=== PATIENT | female | born 1995 | race Caucasian/White ===

== ENCOUNTER 2019-07-25 03:09 | Observation (INO) ==
[2019-07-25] MEDS ORDERED: MoRPHine SULFATE 2 MG/ML CARP IV PRN ×3 (03:27→08:48)
[2019-07-25] MEDS ORDERED: ONDANSETRON INJ 2 MG/ML 2 ML VIAL IV STA (03:27)
[2019-07-25] MEDS ORDERED: SODIUM CHLORIDE 0.9% 1000ML 1,000 ML IV SCH (03:30)
[2019-07-25 04:07] LABS: Hematocrit (blood only) 36.4 % (37-47); Hemoglobin 12.8 g/dL (12.0-16.0); Mean Corpuscular Hemoglobin 30.7 pg (25-34); Mean Corpuscular Hgb Conc 35.2 g/dL (32-36); Mean Corpuscular Volume 87.3 fL (80-100); Mean Platelet Volume 9.7 fL (7.4-10.4); Platelet Count 246 K/uL (130-400); RDW Standard Deviation 41.8 fL (36.4-46.3); Red Blood Count 4.17 M/uL (4.2-5.4); White Blood Count 10.32 K/uL (4.8-10.8)
[2019-07-25 04:35] LABS: Albumin Level 3.9 gm/dl (3.4-5.0); BUN Creatinine Ratio 19.8 (10-20); Calcium 8.6 mg/dl (8.5-10.1); Creatinine Clr Calc Pharmacy 102.1 ml/min; Est GFR (African American) 137.8; Est GFR (Non-African American) 118.9; Magnesium 1.9 mg/dl (1.8-2.4); Potassium 3.4 mmol/L (3.5-5.1)
[2019-07-25 04:37] LABS: Albumin Globulin Ratio 1.1 (0.9-2); Bilirubin,Total 0.6 mg/dl (0.2-1); Globulin 3.7 gm/dl (2.5-4.0); Total Protein 7.6 gm/dl (6.4-8.2)
[2019-07-25 04:41] LABS: Appearance Urine Cloudy (Clear); Bacteria Urine Automated 1+ (Negative); Bilirubin Urine Negative (Negative); Blood Urine Negative (Negative); Color Urine Dark Yellow; Epithelial Cell Urine Auto >30 /lpf (0-5); Glucose Urine UA Negative (Negative); Ketones Urine 1+ (Negative); Leukocyte Esterase Urine Negative (Negative); Nitrite Urine Negative (Negative); Protein Urine Trace (Negative); Specific Gravity Urine 1.034 (1.000-1.030); Urobilinogen Urine Negative (Negative); pH Urine 5.5 (4.5-7.5)
[2019-07-25 04:57] LABS: Cast Urine Automated 0 /lpf (0-5); Mucus Urine Present (None Prsent)
[2019-07-25 04:58] LABS: Calcium Oxalate Crystals Urine Present (None Prsent)
[2019-07-25 05:25] LABS: Basophils # (auto) 0.01 K/uL (0-0.2); Basophils % (auto) 0.1 %; Eosinophils # (auto) 0.07 K/uL (0-0.5); Eosinophils % (auto) 0.7 %; Immature Granulocytes # (auto) 0.02 K/uL (0.00-0.02); Immature Granulocytes % (auto) 0.2 %; Lymphocytes # (auto) 1.06 K/uL (1.2-3.4); Lymphocytes % (auto) 10.3 %; Monocytes # (auto) 0.57 K/uL (0.11-0.59); Monocytes % (auto) 5.5 %; Neutrophils # (auto) 8.59 K/uL (1.4-6.5); Neutrophils % (auto) 83.2 %
[2019-07-25] MEDS ORDERED: IOVERSOL 100ml IV PRN (05:57)
[2019-07-25] MEDS ORDERED: PIPERACILLIN/TAZOBACTAM 4.5 GM/120 ML BAG IV ONE (07:02)
[2019-07-25] MEDS ORDERED: PIPERACILL/TAZOBAC CONSULT ACTIVE PRN ×3 (07:02→14:48)
[2019-07-25] MEDS ORDERED: DESMOPRESSIN ACETATE 19 MCG in SODIUM CHLORIDE 0.9% 50 ML IV ONE (07:11)
--- NOTE | 2019-07-25 07:12 | Ultrasound Report ---
ABDOMINAL ULTRASOUND, RIGHT UPPER QUADRANT HISTORY: Right upper quadrant abdominal pain.. COMPARISON: None. FINDINGS: Pancreas: The pancreas demonstrates a normal echotexture. Liver: Unremarkable. Gallbladder: No gallbladder wall thickening. No gallstones. CBD: 3.5 mm. Right kidney: No hydronephrosis. IMPRESSION: No significant abnormality identified within the right upper quadrant. Electronically signed by: Wolf Fernando M.D. 07/25/2019 7:11 AM
--- NOTE | 2019-07-25 07:19 | CT Scan Report ---
ABDOMEN AND PELVIS CT WITH IV AND ORAL CONTRAST CT DOSE: 300.00 mGy.cm HISTORY: Upper abdominal pain. Right lower quadrant pain. TECHNIQUE: Multiaxial CT images of the abdomen and pelvis were performed following the use of intrave nous and oral contrast. A dose lowering technique was utilized adhering to the principles of ALARA. COMPARISON STUDY: None. FINDINGS: The lung bases are clear. No pneumoperitoneum. No pneumatosis. No fractures within the visu alized osseous structures. The liver, spleen, gallbladder, pancreas, adrenal glands, and kidneys are unremarkable. No retroperitoneal lymphadenopathy. The bladder, uterus, and ovaries are unremarkable. Trace pelvic free fluid. No bowel obstruction. The appendix does not fill with contrast and is dilate d and fluid-filled measuring up to 11 mm in diameter. Findings are consistent with acute appendicitis . No perforation or abscess at this time. IMPRESSION: Acute appendicitis. Electronically signed by: Wolf Fernando M.D. 07/25/2019 7:18 AM
--- NOTE | 2019-07-25 07:21 | Ultrasound Report ---
US pelvic limited CLINICAL HISTORY: Lower abdominal pain. Pelvic pain. COMPARISON STUDY: No previous studies for comparison. FINDINGS: Uterus measures 6 x 2.2 x 3.4 cm. Endometrium measures 2 mm in thickness. There is a small to moderate amount complex fluid within the pelvis. The ovaries are normal. Color flow is identified within each ovary. The right ovary measures 3.6 x 1.6 x 1.7 cm and the left ovary measures 2.2 x 1.3 x 1.8 cm. IMPRESSION: 1. Normal sonographic appearance of the uterus and ovaries. 2. Small to moderate amount of complex fluid within the pelvis. Electronically signed by: Anshul Razo M.D. 07/25/2019 7:19 AM
--- NOTE | 2019-07-25 07:24 | History & Physical Report ---
Date of Service July 25, 2019 Assessment & Plan (1) Acute appendicitis: for laparoscopic appendectomy, possible open operation admit, IV atbx, meds Acute appendicitis type: unspecified acute appendicitis type Qualified Code(s): K35.80 - Unspecified acute appendicitis History of Present Illness Primary Care Provider: ROMERO Wilson pt adm through ER with acute appendicitis h/o Von Willebrands dis Allergies Allergy/AdvReac Type Severity Reaction Status Date / Time lactose Allergy Mild Gastrointestinal Verified 07/25/19 03:42 Upset Home Medications Home Medications Medication Instructions Recorded Confirmed Type Control Pills 1 tab PO DAILY 07/25/19 07/25/19 History lactase [Lactaid] 3,000 unit PO AC PRN 07/25/19 07/25/19 History omeprazole 40 mg PO BID PRN 07/25/19 07/25/19 History Past Med/Surg History Medical History Von Willebrand disease Social History Feels Safe at Home: Yes Smoking Status: Never smoker Review of Systems All systems reviewed & are unremarkable except as noted in HPI & below Physical Exam Physical Exam: abd- deep RLQ pain Constitutional: well developed and well nourished; no acute distress Eyes: + anicteric sclerae Respiratory: normal respiratory effort; no respiratory distress Cardiovascular: Rate/Rhythm: regular rate Gastrointestinal (Abdomen): Percussion/Palpation: abdomen soft Musculoskeletal: Gait: normal gait Skin: no rashes, warm and dry Neurologic: awake Psychiatric: Orientation: alert Results & Data Vital Signs (Past 12 Hours) Vital Signs Temp Pulse Pulse Resp BP BP Pulse Ox 07/25/19 06:22 87 18 101/60 99 07/25/19 05:12 85 16 105/70 100 07/25/19 03:12 36.8 C 114 H 18 107/[address] scan
--- NOTE | 2019-07-25 07:28 | Ultrasound Report ---
US appendix CLINICAL HISTORY: 23 years-old Female presenting with right side abd pain. TECHNIQUE: Real-time grayscale and limited color Doppler ultrasound imaging of the right lower quadra nt was performed to evaluate the appendix. COMPARISON: None. FINDINGS: Appendix not visualized. Trace free fluid in the right lower quadrant. No hyperechogenic fat. No chantal onal lymphadenopathy IMPRESSION: 1. Appendix not visualized. This does not exclude the diagnosis of appendicitis. 2. Trace free fluid in the right lower quadrant. This could suggest regional inflammatory change. Electronically signed by: Charlie Medel M.D. 07/25/2019 7:27 AM
--- NOTE | 2019-07-25 07:41 | Emergency Department Note ---
History of Present Illness General Chief complaint: Abdominal Pain Stated complaint: ABD. PAIN, VOMITING & DIARRHEA Time Seen by Provider: 07/25/19 03:16 History of Present Illness Maximum Pain Intensity: 7 This is a 23-year-old female presenting to the emergency department with generalized abdominal pain over the past 8-10 hours. 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 She began having some generalized pain that slowly migrated to the right side of her abdomen. She does not have a history of abdominal surgery and considers herself usually healthy. She does report a history of von Willebrand's disease. The patient denies chance of . Of note, she is getting in 4 days. The patient has not had fevers or chills. She is nauseated and did have 1 or 2 episodes of emesis prior to ER arrival. The patient rates her current discomfort a 7/10 that is radiating up and down the right side of her abdomen. Home Medications Home Medications Medication Instructions Recorded Confirmed Type Control Pills 1 tab PO DAILY 07/25/19 07/25/19 History lactase [Lactaid] 3,000 unit PO AC PRN 07/25/19 07/25/19 History omeprazole 40 mg PO BID PRN 07/25/19 07/25/19 History Allergies Allergy/AdvReac Type Severity Reaction Status Date / Time lactose Allergy Mild Gastrointestinal Verified 07/25/19 03:42 Upset Past Med/Surg History Medical History Von Willebrand disease Surgical History H/O arthroscopy of knee Social History Preferred Language: Upper Sorbian Communication Ability: Effective Beliefs That Will Affect Care: None Current Living Situation: Significant Other Other Information That Helps Us Care for You: No Feels Safe at Home: Yes Safety Concerns: Feels Safe At This Time Smoking Status: Never smoker Hx Alcohol Use: Yes Alcohol type: wine Hx Substance Use: No Review of Systems A total of 10 systems reviewed and were otherwise negative Physical Exam Vital Signs Vital Signs - 24 hr 07/25/19 03:12 07/25/19 05:12 07/25/19 06:22 Temperature 36.8 C Temperature Source Oral Sepsis Recent Fever Within 48 Hours No Sepsis Action Taken by Nursing No Action Required Pulse Rate 114 H Pulse Rate [Finger] 85 87 Respiratory Rate 18 16 18 Respiratory Effort / Characteristics Non-Labored Respiratory Depth Normal Blood Pressure 107/75 Blood Pressure [Left Arm] 105/70 101/60 Blood Pressure Mean 85 Blood Pressure Mean [Left Arm] 81 73 Pulse Oximetry 100 100 99 Oxygen Delivery Method Room Air Room Air Room Air 07/25/19 07:57 Temperature Temperature Source Sepsis Recent Fever Within 48 Hours Sepsis Action Taken by Nursing Pulse Rate Pulse Rate [Finger] 76 Respiratory Rate 16 Respiratory Effort / Characteristics Respiratory Depth Blood Pressure Blood Pressure [Left Arm] 108/76 Blood Pressure Mean Blood Pressure Mean [Left Arm] 86 Pulse Oximetry 99 Oxygen Delivery Method Room Air VITALS: Vitals are noted on the nurse's note and reviewed by myself. Vital signs stable. GENERAL: Well-developed, well-nourished, white female, who is mildly uncomfortable but not toxic.. HEAD: Normocephalic atraumatic. EARS: External ear normal. External auditory canals clear, tympanic membranes pearly gonzalez without erythema or effusion bilaterally. EYES: Pupils equal round and reactive to light and accommodation. Conjunctivae without injection, sclerae without icterus. Extraocular movements intact. NOSE: Patent, turbinates without inflammation or discharge. MOUTH: Mucous membranes moist. Tonsils are not enlarged. Pharynx without erythema, blood, or exudate. Uvula midline. Airway patent. NECK: Supple without nuchal rigidity. No lymphadenopathy. No thyromegaly. Cervical spine is nontender. HEART: Regular rate and rhythm without murmurs gallops or rubs. LUNGS: Clear to auscultation bilaterally without wheezes, rales or rhonchi. No retractions or accessory muscle use. ABDOMEN: Positive normal bowel sounds x 4. Soft with mild diffuse tenderness on palpation with increased tenderness best appreciated in the suprapubic and right lower quadrants. No rebound or guarding. Percussion along the right side CVA does cause referred tenderness in the right lower quadrant. Course Administered Medications Sodium Chloride (Nss 1000ml) 1,000 mls @ 80 mls/hr IV .[id number] [facility] Stop: 08/24/19 07:29 Last Infusion: 07/25/19 16:09 Dose: 80 mls/hr Documented by: [id number] Infusion: 07/25/19 10:52 Dose: 0 mls/hr Documented by: [id number] Admin: 07/25/19 08:59 Dose: 80 mls/hr Documented by: [id number] Piperacillin Sod/Tazobactam (Sod 3.375 gm/ Dextrose) 115 mls @ 28.75 mls/hr IV Q8H [facility] Stop: 08/04/19 11:59 Last Admin: 07/25/19 19:57 Dose: 28.8 mls/hr Documented by: [id number] Admin: 07/25/19 14:58 Dose: Not Given Documented by: [id number] Promethazine HCl 25 mg/ Sodium (Chloride) 51 mls @ 204 mls/hr IV Q6H PRN PRN Reason: Nausea And Vomiting Stop: 08/24/19 08:47 Last Infusion: 07/25/19 17:07 Dose: 0 mls/hr Documented by: [id number] Admin: 07/25/19 16:39 Dose: 204 mls/hr Documented by: [id number] Miscellaneous (Order Awaiting Action) 1 ea N/A QS [facility] Stop: 08/24/19 15:59 Last Admin: 07/25/19 16:57 Dose: Not Given Documented by: [id number] Ondansetron HCl (Zofran) 4 mg IV [id number] PRN PRN Reason: Nausea Stop: 08/24/19 08:47 Last Admin: 07/25/19 08:59 Dose: 4 mg Documented by: [id number] Discontinued Medications Bupivacaine HCl (Marcaine 0.5% Mpf) Confirm Administered Dose 30 ml .ROUTE .STK- MED ONE Stop: 07/25/19 11:53 Last Admin: 07/25/19 12:56 Dose: 30 ml Documented by: [id number] Bupivacaine HCl/Epinephrine Bitart (Sensorcaine/Epinephrine 0.5% Mpf 1:200,000) Confirm Administered Dose 30 ml .ROUTE .STK-MED ONE Stop: 07/25/19 09:14 Last Admin: 07/25/19 13:37 Dose: Not Given Documented by: [id number] Fentanyl Citrate (Fentanyl Citrate) 25 mcg IV Q5M PRN PRN Reason: PACU Use Only-Pain Stop: 07/25/19 15:47 Last Admin: 07/25/19 14:07 Dose: 25 mcg Documented by: [id number] Sodium Chloride (Nss 1000ml) 1,000 mls @ 999 mls/hr IV .Q1H1M [facility] Stop: 07/25/19 04:30 Last Infusion: 07/25/19 04:49 Dose: 0 mls/hr Documented by: [id number] Admin: 07/25/19 03:48 Dose: 999 mls/hr Documented by: [id number] Piperacillin Sod/Tazobactam Sod (Zosyn) 4.5 gm in 120 mls @ 240 mls/hr IV NOW ONE Stop: 07/25/19 07:31 Last Infusion: 07/25/19 08:53 Dose: 0 mls/hr Documented by: [id number] Admin: 07/25/19 07:19 Dose: 240 mls/hr Documented by: [id number] Desmopressin Acetate 19 mcg/ (Sodium Chloride) 54.75 mls @ 100 mls/hr IV ONE ONE Stop: 07/25/19 07:43 Last Infusion: 07/25/19 11:20 Dose: 0 mls/hr Documented by: [id number] Admin: 07/25/19 10:52 Dose: 100 mls/hr Documented by: [id number] Acetaminophen (Ofirmev) 1,000 mg in 100 mls @ 400 mls/hr IV NOW ONE Stop: 07/25/19 13:32 Last Infusion: 07/25/19 15:10 Dose: 0 mls/hr Documented by: [id number] Admin: 07/25/19 13:57 Dose: 400 mls/hr Documented by: [id number] Ioversol (Optiray 320 100ml) 100 ml IV ONCE PRN PRN Reason: Interaction Checking Stop: 07/29/19 05:56 Last Admin: 07/25/19 05:57 Dose: 92 ml Documented by: [id number] Morphine Sulfate (Morphine Sulfate) 2 mg IV Q1H PRN PRN Reason: Pain Stop: 08/08/19 03:26 Last Admin: 07/25/19 03:49 Dose: 2 mg Documented by: [id number] Ondansetron HCl (Zofran) 4 mg IV NOW STA Stop: 07/25/19 03:28 Last Admin: 07/25/19 03:49 Dose: 4 mg Documented by: [id number] Ondansetron HCl (Zofran) 4 mg IV ONCE PRN PRN Reason: PACU Use Only-Nausea/Vomiting Stop: 07/25/19 15:47 Last Admin: 07/25/19 14:27 Dose: 4 mg Documented by: [id number] Medical Decision Making Differential Diagnosis Differential diagnosis: Etiologies such as biliary colic, cholecystitis, hepatitis, pancreatitis, cardiac disease, pancreatitis, gastritis, peptic ulcer disease, appendicitis, cystitis, diverticulitis, mesenteric ischemia, inflammatory bowel disease, i leus, bowel obstruction, testicular/adnexal torsion, aortic pathology, shingles, as well as others were considered Laboratory Data Result diagrams: 07/25/19 03:37 07/25/19 03:37 Lab Results 07/25/19 07/25/19 07/25/19 Range/Units 03:37 03:37 03:50 WBC 10.32 (4.8-10.8) K/uL RBC 4.17 L (4.2-5.4) M/uL Hgb 12.8 (12.0-16.0) g/dL Hct 36.4 L (37-47) % MCV 87.3 (80-100) fL MCH 30.7 (25-34) pg MCHC 35.2 (32-36) g/dL RDW Std Deviation 41.8 (36.4-46.3) fL RDW Coeff of Meghan 13.0 (11.5-14.5) % Plt Count 246 (130-400) K/uL MPV 9.7 (7.4-10.4) fL Immature Gran % (Auto) 0.2 % Neut % (Auto) 83.2 % Lymph % (Auto) 10.3 % [place] % (Auto) 5.5 % Eos % (Auto) 0.7 % Baso % (Auto) 0.1 % Immature Gran # (Auto) 0.02 (0.00-0.02) K/uL Neut # (Auto) 8.59 H (1.4-6.5) K/uL Lymph # (Auto) 1.06 L (1.2-3.4) K/uL [place] # (Auto) 0.57 (0.11-0.59) K/uL Eos # (Auto) 0.07 (0-0.5) K/uL Baso # (Auto) 0.01 (0-0.2) K/uL Sodium 141 (136-145) mmol/L Potassium 3.4 L (3.5-5.1) mmol/L Chloride 108 H (98-107) mmol/L Carbon Dioxide 25 (21-32) mmol/L Anion Gap 8.0 (3-11) BUN 14 (7-18) mg/dl Creatinine 0.72 (0.6-1.2) mg/dl Est Cr Clr Drug Dosing 102.1 ml/min Est GFR ( Amer) 137.8 Est GFR (Non-Af Amer) 118.9 BUN/Creatinine Ratio 19.8 (10-20) Glucose 105 H (70-99) mg/dl Calcium 8.6 (8.5-10.1) mg/dl Magnesium 1.9 (1.8-2.4) mg/dl Total Bilirubin 0.6 (0.2-1) mg/dl AST 14 L (15-37) U/L ALT 22 (12-78) U/L Alkaline Phosphatase 61 (45-117) U/L Total Protein 7.6 (6.4-8.2) gm/dl Albumin 3.9 (3.4-5.0) gm/dl Globulin 3.7 (2.5-4.0) gm/dl Albumin/Globulin Ratio 1.1 (0.9-2) Lipase 146 (73-393) U/L HCG, Qual Urine Color Dark Yellow Urine Appearance Cloudy A (Clear) Urine pH 5.5 (4.5-7.5) Ur Specific [place] 1.034 H (1.000-1.030) Urine Protein Trace H (Negative) Urine Glucose (UA) Negative (Negative) Urine Ketones 1+ H (Negative) Urine Blood Negative (Negative) Urine Nitrite Negative (Negative) Urine Bilirubin Negative (Negative) Urine Urobilinogen Negative (Negative) Ur Leukocyte Esterase Negative (Negative) Urine WBC (Auto) 5-10 H (0-5) /hpf Urine RBC (Auto) 5-10 H (0-4) /hpf U Hyaline Cast (Auto) 0 (0-5) /lpf U Epithel Cells (Auto) >30 H (0-5) /lpf Urine Bacteria (Auto) 1+ H (Negative) Ur Renal Epithelial Cell Not Reportable Urine Crystals Not Reportable Calcium Oxalate Crystal Present A (None Prsent) Urine Mucus Present A (None Prsent) 07/25/19 Range/Units 04:05 WBC (4.8-10.8) K/uL RBC (4.2-5.4) M/uL Hgb (12.0-16.0) g/dL Hct (37-47) % MCV (80-100) fL MCH (25-34) pg MCHC (32-36) g/dL RDW Std Deviation (36.4-46.3) fL RDW Coeff of Meghan (11.5-14.5) % Plt Count (130-400) K/uL MPV (7.4-10.4) fL Immature Gran % (Auto) % Neut % (Auto) % Lymph % (Auto) % [place] % (Auto) % Eos % (Auto) % Baso % (Auto) % Immature Gran # (Auto) (0.00-0.02) K/uL Neut # (Auto) (1.4-6.5) K/uL Lymph # (Auto) (1.2-3.4) K/uL [place] # (Auto) (0.11-0.59) K/uL Eos # (Auto) (0-0.5) K/uL Baso # (Auto) (0-0.2) K/uL Sodium (136-145) mmol/L Potassium (3.5-5.1) mmol/L Chloride (98-107) mmol/L Carbon Dioxide (21-32) mmol/L Anion Gap (3-11) BUN (7-18) mg/dl Creatinine (0.6-1.2) mg/dl Est Cr Clr Drug Dosing ml/min Est GFR ( Amer) Est GFR (Non-Af Amer) BUN/Creatinine Ratio (10-20) Glucose (70-99) mg/dl Calcium (8.5-10.1) mg/dl Magnesium (1.8-2.4) mg/dl Total Bilirubin (0.2-1) mg/dl AST (15-37) U/L ALT (12-78) U/L Alkaline Phosphatase (45-117) U/L Total Protein (6.4-8.2) gm/dl Albumin (3.4-5.0) gm/dl Globulin (2.5-4.0) gm/dl Albumin/Globulin Ratio (0.9-2) Lipase (73-393) U/L HCG, Qual Cancelled Urine Color Urine Appearance (Clear) Urine pH (4.5-7.5) Ur Specific [place] (1.000-1.030) Urine Protein (Negative) Urine Glucose (UA) (Negative) Urine Ketones (Negative) Urine Blood (Negative) Urine Nitrite (Negative) Urine Bilirubin (Negative) Urine Urobilinogen (Negative) Ur Leukocyte Esterase (Negative) Urine WBC (Auto) (0-5) /hpf Urine RBC (Auto) (0-4) /hpf U Hyaline Cast (Auto) (0-5) /lpf U Epithel Cells (Auto) (0-5) /lpf Urine Bacteria (Auto) (Negative) Ur Renal Epithelial Cell Urine Crystals Calcium Oxalate Crystal (None Prsent) Urine Mucus (None Prsent) Imaging Data Radiologist's Impression: US pelvic limited CLINICAL HISTORY: Lower abdominal pain. Pelvic pain. COMPARISON STUDY: No previous studies for comparison. FINDINGS: Uterus measures 6 x 2.2 x 3.4 cm. Endometrium measures 2 mm in thickness. There is a small to moderate amount complex fluid within the pelvis. The ovaries are normal. Color flow is identified within each ovary. The right ovary measures 3.6 x 1.6 x 1.7 cm and the left ovary measures 2.2 x 1.3 x 1.8 cm. IMPRESSION: 1. Normal sonographic appearance of the uterus and ovaries. 2. Small to moderate amount of complex fluid within the pelvis. ABDOMINAL ULTRASOUND, RIGHT UPPER QUADRANT HISTORY: Right upper quadrant abdominal pain.. COMPARISON: None. FINDINGS: Pancreas: The pancreas demonstrates a normal echotexture. Liver: Unremarkable. Gallbladder: No gallbladder wall thickening. No gallstones. CBD: 3.5 mm. Right kidney: No hydronephrosis. IMPRESSION: No significant abnormality identified within the right upper quadrant. US appendix CLINICAL HISTORY: 23 years-old Female presenting with right side abd pain. TECHNIQUE: Real-time grayscale and limited color Doppler ultrasound imaging of the right lower quadrant was performed to evaluate the appendix. COMPARISON: None. FINDINGS: Appendix not visualized. Trace free fluid in the right lower quadrant. No hyperechogenic fat. No regional lymphadenopathy IMPRESSION: 1. Appendix not visualized. This does not exclude the diagnosis of appendicitis . 2. Trace free fluid in the right lower quadrant. This could suggest regional inflammatory change. ABDOMEN AND PELVIS CT WITH IV AND ORAL CONTRAST CT DOSE: 300.00 mGy.cm HISTORY: Upper abdominal pain. Right lower quadrant pain. TECHNIQUE: Multiaxial CT images of the abdomen and pelvis were performed following the use of intravenous and oral contrast. A dose lowering technique was utilized adhering to the principles of ALARA. COMPARISON STUDY: None. FINDINGS: The lung bases are clear. No pneumoperitoneum. No pneumatosis. No fractures within the visualized osseous structures. The liver, spleen, gallbladder, pancreas, adrenal glands, and kidneys are unremarkable. No retroperitoneal lymphadenopathy. The bladder, uterus, and ovaries are unremarkable. Trace pelvic free fluid. No bowel obstruction. The appendix does not fill with contrast and is dilated and fluid-filled measuring up to 11 mm in diameter. Findings are consistent with acute appendicitis. No perforation or abscess at this time. IMPRESSION: Acute appendicitis. MDM Narrative Physical exam and history were performed. Nursing notes, EMR, and Medication List were personally reviewed. Patient appears to have right-sided and lower abdominal pain for the past sever al hours. The patient does not appear toxic but she does have reproducible tenderness in this area. IV access was established and labs were obtained. The patient was hydrated with normal saline and given a small amount of IV morphine and IV Zofran. Ultrasounds were performed to better assess the patient's discomfort, and she was prepped for CT scan. The patient's blood work is as above and was reviewed. She does not have a significantly elevated white blood cell count, gross anemia, bandemia, or significant electrolyte imbalance. Transaminases are not diagnostic. She is not . Patient's urine appears mildly contaminated, and on reevaluation she is without any UTI symptoms. Ultrasounds were reviewed by myself and radiology right upper quadrant, pelvis, and for the appendix were all without acute findings. CT scan was performed with IV and oral contrast, and this was also reviewed. CT scan does show an enlarged appendix at 11 mm, and is consistent with acute appendicitis. I did speak with the on-call surgeon, Dr. Mcqueen, who was kind enough to evaluate the patient here in the ER. Of note the patient does have a history of von Willebrand disease, and I did place an order with the assistance of pharmacy for her to receive 19 mcg of DDAVP 30 minutes prior to her surgery. The patient may need a second dose no less than 8 hours after her procedure if she has any pe rsistent bleeding. I did inform Dr. Mcqueen of this, as well as nursing to help facilitate timing of the medication. Overall the patient remained in stable condition throughout the remainder of her ER stay. Please see Dr. Mcqueen's dictation for further patient course, plan, and disposition. The chart was completed utilizing [employer] Speech Voice Recognition Software. Grammatical errors, random word insertions, pronoun errors, and incomplete sentences are an occasional consequence of this system due to software limitations, ambient noise, and hardware issues. Any formal questions or concerns about the content, text, or information contained within the body of this dictation should be directly addressed to the provider for clarification. . Impression & Plan Acute appendicitis Discharge Plan Visit Data *Final* Discharge Date/Time: 07/25/19 08:12 Chief Complaint: Abdominal Pain Stated Complaint: ABD. PAIN, VOMITING & DIARRHEA ED Provider: Kelsea Pizano ED Midlevel Provider: Boris Ramirez Discharge Problem: Acute appendicitis Patient Disposition: Admitted As Inpatient Discharge Instructions Interventions: ED Discharge Assessment Last Done: 07/25/19 08:12 Discharge Problem: Acute appendicitis Qualifiers: Acute appendicitis type: unspecified acute appendicitis type Qualified Code(s): K35.80 - Unspecified acute appendicitis
[2019-07-25] MEDS ORDERED: PROMETHAZINE HCL 12.5 MG in SODIUM CHLORIDE 0.9% 50 ML IV PRN (08:48)
[2019-07-25] MEDS ORDERED: ONDANSETRON INJ 2 MG/ML 2 ML VIAL IV PRN ×2 (08:48→10:47)
[2019-07-25] MEDS ORDERED: PROMETHAZINE HCL 25 MG in SODIUM CHLORIDE 0.9% 50 ML IV PRN (08:48)
[2019-07-25] MEDS: SODIUM CHLORIDE 0.9% 1000ML 1,000 ML IV SCH (08:59)
[2019-07-25] MEDS ORDERED: GLYCOPYRROLATE 0.2 MG/ML VIAL ONE ×2 (09:26→11:11)
[2019-07-25] MEDS ORDERED: NEOSTIGMINE METHYLSULFATE 5 MG/5 ML SYR ONE ×2 (09:26→11:11)
[2019-07-25] MEDS ORDERED: fentaNYL citrate 100 MCG/2 ML VIAL ONE ×4 (09:26→13:35)
[2019-07-25] MEDS ORDERED: DEXAMETHASONE SOD INJ 4 MG/ML VIAL ONE ×2 (09:26→11:12)
[2019-07-25] MEDS ORDERED: SUCCINYLCHOLINE CHLORIDE 20 MG/ML 10 ML VIAL ONE (09:26)
[2019-07-25] MEDS ORDERED: MIDAZOLAM HCL 1 MG/ML 2ML VIAL ONE (09:26)
[2019-07-25] MEDS ORDERED: ROCURONIUM BROMIDE 10 MG/ML 5 ML VIAL ONE (09:26)
[2019-07-25] MEDS ORDERED: LIDOCAINE HCL 2% 2 ML VIAL/AMP(20MG/ML) INFIL ONE ×2 (09:26→11:11)
[2019-07-25] MEDS ORDERED: ONDANSETRON INJ 2 MG/ML 2 ML VIAL ONE ×2 (09:26→11:12)
[2019-07-25] MEDS ORDERED: PROPOFOL IV EMULSION 10 MG/ML 20 ML VIAL IV ONE ×2 (09:26→11:11)
[2019-07-25] MEDS ORDERED: HYDROmorphone INJ 2 MG/ML SYR/VIAL ONE ×2 (09:26→11:11)
[2019-07-25] MEDS ORDERED: HYDROmorphone INJ 1 MG/ML SYRINGE IV PRN (10:47)
[2019-07-25] MEDS ORDERED: ATROPINE SULFATE 0.1 MG/ML 10ML SYR IV PRN (10:47)
[2019-07-25] MEDS ORDERED: fentaNYL citrate 100 MCG/2 ML VIAL IV PRN (10:47)
[2019-07-25] MEDS ORDERED: ePHEDrine sulfate 50 MG/ML AMP IV PRN (10:47)
--- NOTE | 2019-07-25 10:50 | Anesthesiology Consultation ---
Date of Service July 25, 2019 Assessment & Plan (1) Encounter for pre-operative examination: Chart Review Chart Review: Acceptable Risk for Surgery and Patient NOT seen in Pre Admission Testing Consults Requested none History Surgery Operation Date: 07/25/19 07:00 Proposed Procedures p Laparoscopic Appendectomy - Nacho Mcqueen MD, FACS Height/Weight Height: 5 ft Weight: 63.7 kg Allergies Allergy/AdvReac Type Severity Reaction Status Date / Time lactose Allergy Mild Gastrointestinal Verified 07/25/19 03:42 Upset Medications Home Medications Medication Instructions Recorded Confirmed Last Taken Control Pills 1 tab PO DAILY 07/25/19 07/25/19 Unknown lactase [Lactaid] 3,000 unit PO AC PRN 07/25/19 07/25/19 Unknown omeprazole 40 mg PO BID PRN 07/25/19 07/25/19 Unknown Active Medications Generic Name Dose Route Start Last Admin Trade Name Freq PRN Reason Stop Dose Admin Sodium Chloride 1,000 mls @ 80 mls/hr 07/25/19 07:30 07/25/19 10:52 Nss 1000ml IV 08/24/19 07:29 0 mls/hr .[id number] IBETH Titration Ioversol 100 ml 07/25/19 05:57 07/25/19 05:57 Optiray 320 100ml IV 07/29/19 05:56 92 ml ONCE PRN Administration Interaction Checking Morphine Sulfate 2 mg 07/25/19 03:27 07/25/19 03:49 Morphine Sulfate IV 08/08/19 03:26 2 mg Q1H PRN Administration Pain Ondansetron HCl 4 mg 07/25/19 08:48 07/25/19 08:59 Zofran IV 08/24/19 08:47 4 mg [id number] PRN Administration Nausea Past Medical History Medical History Von Willebrand disease Exercise / Class Metabolic Activity 1 > 8 Run/Swim/Ski/Tennis Past Surgical History Surgical History H/O arthroscopy of knee Past Anesthesia History No Hx of Anesthesia Complications and No Family Hx of Anesthesia Complications History of PONV No Hx of PONV and No Hx of Motion Sickness Social History Smoking Status: Never smoker Hx Alcohol Use: Yes Alcohol type: wine alcohol intake frequency: a few times a week Hx Substance Use: No Physical Exam Vital Signs Last Vital Signs Temp 36.5 C 07/25/19 09:00 Pulse 94 H 07/25/19 09:00 Resp 16 07/25/19 09:00 BP 102/70 07/25/19 09:00 Pulse Ox 100 07/25/19 09:00 Testing Laboratory Results 07/25/19 03:37 07/25/19 03:37 Urine Color Dark Yellow 07/25/19 03:50 Urine Appearance Cloudy (Clear) A 07/25/19 03:50 Urine pH 5.5 (4.5-7.5) 07/25/19 03:50 Ur Specific [place] 1.034 (1.000-1.030) H 07/25/19 03:50 Urine Protein Trace (Negative) H 07/25/19 03:50 Urine Glucose (UA) Negative (Negative) 07/25/19 03:50 Urine Ketones 1+ (Negative) H 07/25/19 03:50 Urine Nitrite Negative (Negative) 07/25/19 03:50 Ur Leukocyte Esterase Negative (Negative) 07/25/19 03:50 Urine WBC (Auto) 5-10 /hpf (0-5) H 07/25/19 03:50 Urine RBC (Auto) 5-10 /hpf (0-4) H 07/25/19 03:50 U Hyaline Cast (Auto) 0 /lpf (0-5) 07/25/19 03:50 U Epithel Cells (Auto) >30 /lpf (0-5) H 07/25/19 03:50 Urine Bacteria (Auto) 1+ (Negative) H 07/25/19 03:50
[2019-07-25] MEDS ORDERED: KETOROLAC 30 MG/ML VIAL ONE (11:12)
[2019-07-25] MEDS ORDERED: METOCLOPRAMIDE HCL INJ 5 MG/ML 2 ML VIAL ONE (11:12)
[2019-07-25] MEDS ORDERED: raNITIdine HCl 25 MG/ML VIAL IV ONE (11:12)
[2019-07-25] MEDS: BUPIVACAINE/EPINEPHRINE 0.5% MPF 1:200,000 30 ML VIAL ONE ×2 (11:20→13:37)
[2019-07-25] MEDS ORDERED: BUPIVACAINE 0.5 % 5 MG/1 ML MPF 30ML VIAL ONE (11:52)
--- NOTE | 2019-07-25 13:15 | Operative Report ---
Post Operative Report Pre & Post Diagnosis Operation Date: 07/25/19 07:00 Pre-Op Diagnosis: Appendicitis Post-Op Diagnosis: Appendicitis Procedure Operation Date: 07/25/19 07:00 Actual Procedures p Laparoscopic Appendectomy - Nacho Mcqueen MD, FACS Surgeon Nacho Mcqueen MD, FACS [employer] Former Marcela Ramirez Estimated Blood Loss 5 Findings Consistent with Post-Op Diagnosis Specimens appendix Description of Procedure see dictation I attest to the content of the Intraoperative Record and any orders documented therein. Any exceptions are noted below.
[2019-07-25] MEDS ORDERED: ACETAMINOPHEN 1,000 MG/100 ML VIAL IV ONE (13:18)
--- NOTE | 2019-07-25 13:26 | Operative Report ---
DATE OF OPERATION: 07/25/2019 NAME OF OPERATION: Laparoscopic appendectomy. PREOPERATIVE DIAGNOSIS: Acute appendicitis. POSTOPERATIVE DIAGNOSIS: Acute appendicitis. STAFF SURGEON: Nacho Mcqueen M.D. ENVELOPE STAMPING MACHINE OPERATOR: Ruchi Ramirez. ANESTHESIA: General. DESCRIPTION OF PROCEDURE: The patient was brought in the operating room and placed on the operating table in supine position. Her abdomen was prepped and draped in the usual fashion. Clinton catheter was placed and it was removed at the end of the procedure. My assistant attorney general helped with prepping, draping, removal of the appendix and closure of the wounds. A 0.5% plain Marcaine was used to anesthetize all incisions. Incision was made above the umbilicus, carrying dissection down to the fascia, placing a Veress needle producing pneumoperitoneum. An 11 mm port was placed at this level and then under visualization, a 5 mm port was placed suprapubically and a 12 mm port placed in left lower quadrant. The cecum was reflected. The appendix identified. It was thickened and inflamed. The base of the appendix was transected using an Endo-JOHANNY stapler and then the mesoappendix transected using a second load of Endo-JOHANNY stapler. The appendix was placed in an Endobag. There was good hemostasis. The Endobag was removed from the 12 mm site. All ports were then removed. Pneumoperitoneum reduced. Fascia at the umbilicus and left lower quadrant closed using 0 Vicryl suture. Skin reapproximated using subcuticular 4-0 Monocryl. Dermabond was used for the umbilicus and suprapubic area and Steri-Strips for left lower quadrant. The patient was transferred to recovery room in stable condition. I attest to the content of the Intraoperative Record and any orders documented therein. Any exception s are noted below.
[2019-07-25] MEDS ORDERED: ESMOLOL HCL INJ 10 MG/ML 10ML VIAL IV ONE (13:41)
[2019-07-25] MEDS ORDERED: IBUPROFEN 600 MG TAB PO PRN (14:48)
[2019-07-25] MEDS ORDERED: HYDROCODONE/ACETAMOPHEN 5/325MG TAB PO PRN ×2 (14:48)
[2019-07-25] MEDS ORDERED: ACETAMINOPHEN 325 MG TAB PO PRN (14:48)
[2019-07-25] MEDS ORDERED: PIPERACILLIN/TAZOBACTAM 3.375 GM in DEXTROSE 5% 100 ML IV SCH (14:48)
[2019-07-25] MEDS: PIPERACILLIN/TAZOBACTAM 3.375 GM in DEXTROSE 5% 100 ML IV SCH ×2 (14:58→19:57)
--- NOTE | 2019-07-25 15:17 | Anesthesiology Progress Note ---
Date of Service July 25, 2019 Anesthesia Post Procedure Vital Signs Vital Signs: Temp Pulse Pulse Pulse Resp BP BP 07/25/19 14:48 36.4 C L 95 H 16 115/72 07/25/19 14:30 36.6 C 91 H 14 106/69 07/25/19 14:20 90 14 112/71 07/25/19 14:10 75 14 101/62 07/25/19 14:00 104 H 16 103/64 07/25/19 13:50 81 18 113/73 07/25/19 13:44 36.8 C 101 H 12 102/71 07/25/19 10:55 36.9 C 99 H 18 113/74 07/25/19 09:00 36.5 C 94 H 16 102/70 07/25/19 07:57 76 16 108/76 07/25/19 06:22 87 18 101/60 07/25/19 05:12 85 16 105/70 07/25/19 03:12 36.8 C 114 H 18 107/75 Pulse Ox 07/25/19 14:48 99 07/25/19 14:30 98 07/25/19 14:20 100 07/25/19 14:10 100 07/25/19 14:00 100 07/25/19 13:50 100 07/25/19 13:44 100 07/25/19 10:55 100 07/25/19 09:00 100 07/25/19 07:57 99 07/25/19 06:22 99 07/25/19 05:12 100 07/25/19 03:12 100 Pain Intensity Abdomen: Pain Intensity: 6 Transfer of Care Handoff Completed per policy Notes Mental Status: alert / awake / arousable and participated in evaluation Patient Amnestic to Procedure: Yes Nausea / Vomiting: adequately controlled Pain: adequately controlled Airway Patency, RR, SpO2: stable & adequate BP & HR: stable & adequate Hydration State: stable & adequate Anesthetic Complications: no major complications apparent and Pt Satisfied with anesthetic care
[2019-07-26] MEDS: SODIUM CHLORIDE 0.9% 1000ML 1,000 ML IV SCH ×2 (00:10→08:08)
[2019-07-26] MEDS: PIPERACILLIN/TAZOBACTAM 3.375 GM in DEXTROSE 5% 100 ML IV SCH (04:28)
--- NOTE | 2019-07-26 07:43 | Discharge Summary ---
PRINCIPAL DIAGNOSIS: Acute appendicitis. PROCEDURE: The patient underwent laparoscopic appendectomy. HISTORY OF PRESENT ILLNESS: The patient is a 23-year-old female presenting to the Emergency Room with acute abdominal pain, found with acute appendicitis, taken to the operating room on 07/25/2019 where she underwent laparoscopic appendectomy, which she has tolerated quite well and is felt stable for discharge home today to be followed in the surgical clinic within 2-3 weeks.
--- NOTE | 2019-07-26 10:44 | Anesthesiology Progress Note ---
Date of Service July 26, 2019 Anesthesia Post Procedure Vital Signs Vital Signs: Temp Pulse Pulse Resp BP Pulse Ox 07/26/19 08:19 36.8 C 82 16 107/69 98 07/26/19 04:15 36.8 C 82 16 107/69 98 07/25/19 23:30 36.9 C 102 H 16 98/58 L 98 07/25/19 19:59 37 C 93 H 16 105/70 98 07/25/19 17:46 36.4 C L 80 18 99/64 L 98 07/25/19 16:45 36.6 C 81 16 89/53 L 98 07/25/19 15:47 36.9 C 80 18 98/64 L 97 07/25/19 14:48 36.4 C L 95 H 16 115/72 99 07/25/19 14:30 36.6 C 91 H 14 106/69 98 07/25/19 14:20 90 14 112/71 100 07/25/19 14:10 75 14 101/62 100 07/25/19 14:00 104 H 16 103/64 100 07/25/19 13:50 81 18 113/73 100 07/25/19 13:44 36.8 C 101 H 12 102/71 100 07/25/19 10:55 36.9 C 99 H 18 113/74 100 Pain Intensity Abdomen: Pain Intensity: 6 Notes Mental Status: alert / awake / arousable and participated in evaluation Patient Amnestic to Procedure: Yes Nausea / Vomiting: see Notes below Pain: adequately controlled Airway Patency, RR, SpO2: stable & adequate BP & HR: stable & adequate Hydration State: stable & adequate Anesthetic Complications: no major complications apparent and Pt Satisfied with anesthetic care
== END 2019-07-26 10:57 | disposition home or self-care (01) ==
LOC: ED 03:09 → 3W 03:09
DX: Z79.899 Other long term (current) drug therapy; Z79.3 Long term (current) use of hormonal contraceptives; K35.80 Unspecified acute appendicitis; Z91.040 Latex allergy status